=== PATIENT | female | born 1980 | race Caucasian/White ===

== ENCOUNTER 2018-05-24 13:37 | Emergency (ER) | payer BC, OTHER ==
[2018-05-24 13:45] VITALS: BP 135/84
--- NOTE | 2018-05-24 15:00 | UC ---
Cardiac HPI - HPI Summary HPI Summary: 37-year-old woman comes in with a chief complaint of chest pain. Upper and lateral chest achiness is how the patient describes it. I worse is about a 4 out of 10 right now it's been a while 10. She's had this chest sensation full- time for 3 days. No fevers chills no cough no chest congestion. Patient does not feel nauseous sweaty or short of breath. No palpitations. Occasionally she does get a sensation into her left arm. Activity does not make it worse. Neither it is laying down or taking a deep breath or moving her arm. She does have a significant medical history and that her father at 42 of a heart attack. She has an aunt who also in her 40s from a heart attack. Patient herself does not have high blood pressure high cholesterol or diabetes. She is a former smoker she quit about 10 years ago. She has an IUD. She has no history of DVT or PE. Today she has no calf pain or calf swelling. - History of Current Complaint Chief Complaint: UCChestPain Stated Complaint: CHEST ACHEY Hx Last Menstrual Period: 04/2018 Pain Intensity: 2 - Allergy/Home Medications Allergies/Adverse Reactions: Allergies Allergy/AdvReac Type Severity Reaction Status Date / Time Penicillins Allergy Rash Verified 05/24/18 13:41 Home Medications: Home Medications Multivit-Min/Folic Acid/Biotin [Hair, Skin and Nails Caplet] 1 each PO DAILY 01/30 [History Confirmed 05/24/18] PMH/Surg Hx/FS Hx/Imm Hx Previously Healthy: Yes - Surgical History Surgical History: None - Family History Known Family History: Positive: Cardiac Disease - Social History Alcohol Use: Occasionally Substance Use Type: None Smoking Status (MU): Former Smoker Review of Systems All Other Systems Reviewed And Are Negative: Yes Constitutional: Positive: Negative Skin: Positive: Negative Eyes: Positive: Negative ENT: Positive: Negative Respiratory: Positive: Negative Cardiovascular: Positive: Chest Pain Gastrointestinal: Positive: Negative Motor: Positive: Negative Neurovascular: Positive: Negative Musculoskeletal: Positive: Negative Neurological: Positive: Negative Psychological: Positive: Anxious Is Patient Immunocompromised?: No Physical Exam Triage Information Reviewed: Yes Appearance: Well-Appearing, No Pain Distress, Well-Nourished Vital Signs: Initial Vital Signs Temp 98.9 F 05/24/18 13:42 Pulse 84 05/24/18 13:42 Resp 20 05/24/18 13:42 BP 135/84 05/24/18 13:42 Pulse Ox 100 05/24/18 13:42 Vital Signs Reviewed: Yes Eye Exam: Normal Eyes: Positive: Conjunctiva Clear Neck: Positive: Supple Respiratory: Positive: Lungs clear, Normal breath sounds, No respiratory distress Cardiovascular: Positive: RRR Abdomen Description: Positive: Nontender, Soft Bowel Sounds: Positive: Present Musculoskeletal Exam: Normal Musculoskeletal: Positive: Strength Intact, ROM Intact, No Edema, Other: - no calf tenderness Neurological: Positive: Alert, Muscle Tone Normal Psychological Exam: Normal Psychological: Positive: Age Appropriate Behavior Skin Exam: Normal Diagnostics - EKG Cardiac Rate: NL - at 1349 Cardiac Rhythm: Sinus: Normal - 69 bpm Ectopy: None ST Segment: Normal - Assessment/Plan Course Of Treatment: Patient Name: RUTH ENRIQUEZ Medical Record#: [id number] Ordering Physician: Ivan Barth MD Acct.#: [id number] : 1980 Age: 37 Sex: F Location: [facility] Exam Date: 05/24/181454 ADM Status: PRE ER Order Information: CHEST PA LAT 2 VWS Accession Number: [id number] CPT: 34564 HISTORY: chest pressure left COMPARISONS: None relevant available at the time of dictation. VIEWS: 4: Frontal dual-energy and lateral views of the chest. FINDINGS: CARDIOMEDIASTINAL SILHOUETTE: The cardiomediastinal silhouette is normal. PENELOPE: The penelope are normal. PLEURA: The costophrenic angles are sharp. No pleural abnormalities are noted. LUNG PARENCHYMA: The lungs are clear. ABDOMEN: The upper abdomen is clear. There is no subphrenic gas. BONES AND SOFT TISSUES: No bone or soft tissue abnormalities are noted. OTHER: None. IMPRESSION: NO ACTIVE CARDIOPULMONARY DISEASE. <Electronically signed by Yassine Ayoub MD in OV> 05/24/18 2580 I discussed the x-ray and EKG with the patient. Both of these are normal. Patient has no associated symptoms with her chest tightness. She is not sweaty short of breath or nauseous. The discomfort is not changed with activity she has no fevers. She has no calf tenderness or calf swelling she's low risk for PE or DVT. At this time I recommended following up with primary care doctor. We also discussed that if her symptoms worsened or she had any concerns she started to go the emergency department for further evaluation and care. - Clinical Impression Provider Diagnosis: Chest pain Discharge - Sign-Out/Discharge Documenting (check all that apply): Patient Departure All imaging exams completed and their final reports reviewed: Yes - Discharge Plan Condition: Stable Disposition: HOME Patient Education Materials: Chest Pain (ED) Referrals: [facility] [Outside] Additional Instructions: FOLLOW UP WITH YOUR DOCTOR IF NOT COMPLETELY IMPROVED. GO TO THE EMERGENCY DEPARTMENT FOR WORSENING OF YOUR CONDITION; CHEST PAIN, SHORTNESS OF BREATH, YOU FEEL ILL, YOU FEEL LIKE PASSING OUT OR QUESTIONS OR CONCERNS. - Billing Disposition and Condition Condition: STABLE Disposition: Home
== END 2018-05-24 16:01 | disposition home or self-care (01) ==
LOC: UCCORT 13:37
DX: R07.9 Chest pain, unspecified (principal); Z88.0 Allergy status to penicillin; Z87.891 Personal history of nicotine dependence
CPT/HCPCS: 71046; 99201; G0463